=== PATIENT | male | born 1985 | race Caucasian/White ===

== ENCOUNTER 2018-10-06 19:13 | Emergency (ER) | payer SELFPAY ==
[2018-10-06 19:36] LABS: BASOPHILS % (AUTO) 0.4 %; EOSINOPHILS % (AUTO) 0.7 %; HGB - HEMOGLOBIN 16.8 g/dL (14.0-18.0); LYMPHOCYTES % (AUTO) 6.3 %; MEAN CORPUSCULAR HEMOGLOBIN 30.3 pg (27.0-31.0); MEAN CORPUSCULAR HGB CONC 33.3 g/dL (32.0-36.0); MEAN PLATELET VOLUME 9.1 fL (7.4-11.4); MONOCYTES % (AUTO) 7.6 %; NEUTROPHILS % (AUTO) 84.6 %; PLT - PLATELET COUNT 237 10^3/uL (130-450); RED BLOOD COUNT 5.55 10^6/uL (4.70-6.10); RED CELL DISTRIBUTION WIDTH 12.6 % (12.0-15.0); WHITE BLOOD COUNT 23.1 x10^3/uL (4.8-10.8)
[2018-10-06 19:38] LABS: ABNORMAL LYMPHS % (MANUAL) 0 %
[2018-10-06 19:49] LABS: ALBUMIN 4.5 g/dL (3.2-5.5); ALBUMIN/GLOBULIN RATIO 1.2 (1.0-2.2); BILIRUBIN,TOTAL 0.4 mg/dL (0.2-1.0); CALCIUM 9.6 mg/dL (8.5-10.3); CREATININE 0.9 mg/dL (0.6-1.2); TOTAL PROTEIN 8.2 g/dL (6.7-8.2)
[2018-10-06 19:59] LABS: BAND NEUTROPHILS % (MANUAL) 8 %; DIFFERENTIAL COMMENT MANUAL DIFFERENTIAL; LYMPHOCYTES % (MANUAL) 13 %; MONOCYTES # (MANUAL) 0.7 10^3/uL (0.0-1.0); PLATELET ESTIMATE, MANUAL NORMAL (130-450,000) (NORMAL); PLATELET MORPHOLOGY NORMAL APPEARANCE (NORMAL); RBC MORPHOLOGY (MULTIPLE) NORMAL APPEARANCE (NORMAL)
[2018-10-06] MEDS ORDERED: SODIUM CHLORIDE 0.9% 1,000 ML IV ONE (20:05)
--- NOTE | 2018-10-06 20:29 | ED Physician Documentation ---
PD HPI NVD - Stated complaint Stated Complaint: VOMITING - Chief complaint Chief Complaint: Abd Pain - History obtained from History obtained from: Patient - History of Present Illness Timing - onset: How many months ago Timing - details: Gradual onset, Still present Associated symptoms: Abdominal pain (Left abdomen), Dizzy, Near syncope / syncope, Other (Reports black coffee-ground gritty stools about 2-1/2 weeks ago that have resolved.). No: Fever, Hematemesis, Dysuria, Hematuria Contributing factors: No: Sick contact, Bad food, Travel, Recent antibiotics Recently seen: Not recently seen - Additonal information Additional information: This is a 33-year-old presents with complaints that he is been having "stomach problems" For the past several months. This consist of having abdominal pain across the whole abdomen but mostly on the left side kind of a stabbing type of pain. He is been having vomiting and diarrhea intermittently. He says his stools are now just water. He has not seen any bloody emesis but he thinks it was blood in his stool because he had black coffee ground gritty stools. His last emesis was just prior to arrival and he has already had diarrhea here tonight. He complains of chronic nausea. He is here tonight because he is feeling like he cannot go to work tomorrow. He has not traveled outside the [place] in the past 2 years. He denies use of antibiotics. He had a similar episode back in about 2013 that he was seen at [facility] for and the did a colonoscopy and biopsy of something and the symptoms resolved. He has been feeling dizzy but has not passed out. He gets a racing heart whenever he vomits. He works as a residential roofer helper. He lives alone. Review of Systems Constitutional: denies: Fever Nose: denies: Rhinorrhea / runny nose, Congestion Throat: denies: Sore throat Cardiac: reports: Palpitations (Only with vomiting) Respiratory: denies: Dyspnea GI: reports: Abdominal Pain, Nausea, Vomiting, Diarrhea, Bloody / black stool. denies: Hematemesis : denies: Dysuria, Frequency Musculoskeletal: denies: Back pain Neurologic: denies: Syncope Endocrine: reports: Other (He is not diabetic) PD PAST MEDICAL HISTORY - Past Medical History Past Medical History: No - Past Surgical History Past Surgical History: Yes Ortho: Other - Present Medications Home Medications: Ambulatory Orders Medication Instructions Recorded Confirmed No Known Home Medications 10/06/18 10/06/18 - Allergies Allergies/Adverse Reactions: Allergies Allergy/AdvReac Type Severity Reaction Status Date / Time Sulfa (Sulfonamide Allergy Hives Verified 10/06/18 19:20 Antibiotics) - Social History Does the pt smoke?: Yes Smoking Status: Current every day smoker Does the pt drink ETOH?: Yes ETOH Use: Wine, Beer, Liquor Does the pt have substance abuse?: No - Immunizations Immunizations are current?: Yes - POLST Patient has POLST: No PD ED PE NORMAL - Vitals Vital signs reviewed: Yes - General General: Alert and oriented X 3, No acute distress, Well developed/nourished - HEENT HEENT: Atraumatic, PERRL, Moist mucous membranes, Pharynx benign - Neck Neck: Supple, no meningeal sign, No adenopathy - Cardiac Cardiac: RRR, No murmur, Strong equal pulses - Respiratory Respiratory: No respiratory distress, Clear bilaterally - Abdomen Abdomen: Normal bowel sounds, Soft, No organomegaly, Other (Some guarding on the left abdominal.) - Derm Derm: Normal color, Warm and dry, No rash - Extremities Extremities: No edema - Neuro Neuro: Alert and oriented X 3, Normal speech Results - Vitals Vitals: Vital Signs - 24 hr 10/06/18 10/06/18 19:17 21:30 Temperature 36.2 C L Heart Rate 68 65 Respiratory 18 16 Rate Blood Pressure 129/91 H 133/74 H O2 Saturation 98 99 Oxygen O2 Source Room air - Labs Labs: Microbiology 10/06/18 21:10 Campylobacter Antigen Assay - Final Stool Laboratory Tests 10/06/18 10/06/18 10/06/18 19:30 19:30 20:28 WBC 23.1 H RBC 5.55 Hgb 16.8 Hct 50.5 MCV 91.0 MCH 30.3 MCHC 33.3 RDW 12.6 Plt Count 237 MPV 9.1 Neut # (Auto) Not Reportable Lymph # (Auto) Not Reportable [place] # (Auto) Not Reportable Eos # (Auto) Not Reportable Baso # (Auto) Not Reportable Absolute Nucleated RBC Not Reportable Total Counted 100 Band Neuts % (Manual) 8 Abnorm Lymph % (Manual) 0 Nucleated RBC % Not Reportable Neutrophils # (Manual) 19.4 H Lymphocytes # (Manual) 3.0 Monocytes # (Manual) 0.7 Eosinophils # (Manual) 0.0 Basophils # (Manual) 0.0 Differential Comment MANUAL DIFFERENTIAL Platelet Estimate NORMAL (130-450,000) Platelet Morphology NORMAL APPEARANCE RBC Morph Micro Appear NORMAL APPEARANCE Sodium 141 Potassium 4.3 Chloride 105 Carbon Dioxide 25 Anion Gap 11.0 BUN 18 Creatinine 0.9 Estimated GFR (MDRD) 98 Glucose 107 H Calcium 9.6 Total Bilirubin 0.4 AST 18 ALT 25 Alkaline Phosphatase 70 Total Protein 8.2 Albumin 4.5 Globulin 3.7 Albumin/Globulin Ratio 1.2 Lipase 29 Urine Color YELLOW Urine Clarity CLEAR Urine pH 5.5 Ur Specific [place] 1.025 Urine Protein NEGATIVE Urine Glucose (UA) NEGATIVE Urine Ketones NEGATIVE Urine Occult Blood NEGATIVE Urine Nitrite NEGATIVE Urine Bilirubin NEGATIVE Urine Urobilinogen 0.2 (NORMAL) Ur Leukocyte Esterase NEGATIVE Ur Microscopic Review NOT INDICATED Urine Culture Comments NOT INDICATED Stl Occult Blood (IFOB) Stool Leukocytes, Qual 10/06/18 10/06/18 21:10 21:10 WBC RBC Hgb Hct MCV MCH MCHC RDW Plt Count MPV Neut # (Auto) Lymph # (Auto) [place] # (Auto) Eos # (Auto) Baso # (Auto) Absolute Nucleated RBC Total Counted Band Neuts % (Manual) Abnorm Lymph % (Manual) Nucleated RBC % Neutrophils # (Manual) Lymphocytes # (Manual) Monocytes # (Manual) Eosinophils # (Manual) Basophils # (Manual) Differential Comment Platelet Estimate Platelet Morphology RBC Morph Micro Appear Sodium Potassium Chloride Carbon Dioxide Anion Gap BUN Creatinine Estimated GFR (MDRD) Glucose Calcium Total Bilirubin AST ALT Alkaline Phosphatase Total Protein Albumin Globulin Albumin/Globulin Ratio Lipase Urine Color Urine Clarity Urine pH Ur Specific [place] Urine Protein Urine Glucose (UA) Urine Ketones Urine Occult Blood Urine Nitrite Urine Bilirubin Urine Urobilinogen Ur Leukocyte Esterase Ur Microscopic Review Urine Culture Comments Stl Occult Blood (IFOB) POSITIVE A Stool Leukocytes, Qual NEGATIVE - Rads (name of study) abd/pelvis CT Radiology: See rad report (Neg for acute changes) PD MEDICAL DECISION MAKING - ED course Complexity details: reviewed results, re-evaluated patient, d/w patient ED course: Patient's white blood cell count was 23,000. Urinalysis and CMP and lipase were normal. He was given a liter fluids and he was able to supply a stool specimen which has been sent to the lab for culture, ova and parasites and Giardia screen. There was blood in the stool but no leukocytes. I did obtain a CT scan because of the elevated white count and left lower quadrant pain but no evidence of acute inflammatory process was noted. Patient was given a note for work tomorrow, which is what prompted his visit to begin with. He is referred to primary care for follow-up and most likely needs referral for an repeat colonoscopy and GI evaluation. Departure - Departure Disposition: 01 Home, Self Care Clinical Impression: Abdominal pain Qualifiers: Abdominal location: left lower quadrant Qualified Code(s): R10.32 - Left lower quadrant pain Diarrhea Qualifiers: Diarrhea type: unspecified type Qualified Code(s): R19.7 - Diarrhea, unspecified Condition: Good Instructions: ED Diet Vomiting Diarrhea Follow-Up: [facility] [Provider Group] Comments: You should call tomorrow to arrange follow-up with the primary care provider. Cultures and other stool studies are still pending at this time and they need to be followed up on. You probably need a repeat colonoscopy done as well. Continue to keep hydrated with plenty of water. Return to the emergency department if you develop a fever, have increasing pain, see leslee blood in the stool or other problems arise. Forms: Activity restrictions
[2018-10-06 20:33] LABS: BILIRUBIN,URINE NEGATIVE (NEGATIVE); GLUCOSE, URINE (UA) NEGATIVE (NEGATIVE); KETONES,URINE (UA) NEGATIVE (NEGATIVE); LEUKOCYTE ESTERASE, URINE NEGATIVE (NEGATIVE); NITRITE,URINE NEGATIVE (NEGATIVE); OCCULT BLOOD,URINE NEGATIVE (NEGATIVE); PH,URINE 5.5 PH (5.0-7.5); PROTEIN,URINE NEGATIVE (NEGATIVE); UROBILINOGEN,URINE 0.2 (NORMAL) E.U./dL (NORMAL)
[2018-10-06 20:35] LABS: CLARITY,URINE CLEAR (CLEAR)
[2018-10-06] MEDS ORDERED: IOVERSOL 320 100 ML VIAL IVP ONE ×2 (21:17→22:03)
--- NOTE | 2018-10-06 22:26 | CT Report ---
Reason: LLQ pain; V and D Procedure Date: 10/06/2018 Accession Number: [id number] / [id number] Procedure: CT - Abdomen/Pelvis W CPT Code: FULL RESULT: EXAM: CT ABDOMEN AND PELVIS EXAM DATE: 10/06/2018 10:01 PM. CLINICAL HISTORY: Left lower quadrant pain, vomiting and diarrhea. Intermittent abdominal pain for 2 months. COMPARISONS: None. TECHNIQUE: Routine helical CT imaging was performed through the abdomen and pelvis. IV contrast: OPTI 320 100ML. Enteric contrast: No. Reconstructions: Coronal and sagittal. In accordance with CT protocol optimization, one or more of the following dose reduction techniques were utilized for this exam: automated exposure control, adjustment of mA and/or KV based on patient size, or use of iterative reconstructive technique. FINDINGS: ABDOMEN: Liver: No significant abnormality. Stomach/Distal Esophagus: No significant abnormality. Gallbladder: No significant abnormality. Bile Ducts: No significant abnormality. Pancreas: No significant abnormality. Spleen: No significant abnormality. Kidneys: No suspicious solid appearing lesion. No hydronephrosis. Adrenals: No significant abnormality. Bowel: No obstruction. Average fecal residual. Appendix: Normal. Lymph Nodes: No pathologically enlarged nodes. Vasculature: Normal caliber aorta. Fluid: No significant free fluid. Abdominal Wall: No significant abnormality. Other: No significant abnormality. PELVIS: Prostate and Seminal Vesicles: No significant abnormality. Bladder: No significant abnormality. Lymph Nodes: No pathologically enlarged nodes. Fluid: No significant free fluid. Other: None. BONES: No suspicious bony lesions. LOWER CHEST: No significant consolidation or effusion. IMPRESSION: No acute abdominal or pelvic abnormality. RADIA
[2018-10-06 23:06] VITALS: BP 135/73
== END 2018-10-06 23:22 | disposition home or self-care (01) ==
LOC: ED 19:13
DX: R10.32 Left lower quadrant pain (principal); R19.7 Diarrhea, unspecified; K92.1 Melena; D72.829 Elevated white blood cell count, unspecified; F17.200 Nicotine dependence, unspecified, uncomplicated
CPT/HCPCS: 36415; 74177; 80053; 81003; 82274; 83630; 83690; 85025; 87045; 87046; 96360; 99284; Q9967; 81001; 87015; 87086; 87177; 87209; 87272; 87329

== ENCOUNTER 2019-06-04 02:34 | Emergency (ER) | payer MEDICAID ==
[2019-06-04] MEDS ORDERED: SODIUM CHLORIDE 0.9% 1,000 ML IV ONE (02:40)
[2019-06-04] MEDS ORDERED: ceFAZolin 2 GM in SODIUM CHLORIDE 0.9% 100ML 100 ML IV STA (02:40)
[2019-06-04] MEDS ORDERED: TETANUS/DIPHTHERIA/PERTUSSIS 0.5 ML SYRINGE IM ONE (02:41)
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
[2019-06-04 02:56] LABS: BASOPHILS # (AUTO) 0.1 10^3/uL (0.0-0.1); BASOPHILS % (AUTO) 0.8 %; EOSINOPHILS # (AUTO) 0.3 10^3/uL (0.0-0.7); EOSINOPHILS % (AUTO) 2.3 %; HGB - HEMOGLOBIN 14.3 g/dL (14.0-18.0); LYMPHOCYTES # (AUTO) 4.2 10^3/uL (1.5-3.5); LYMPHOCYTES % (AUTO) 30.8 %; MEAN CORPUSCULAR HEMOGLOBIN 31.6 pg (27.0-31.0); MEAN CORPUSCULAR HGB CONC 33.5 g/dL (32.0-36.0); MEAN CORPUSCULAR VOLUME 94.3 fL (80.0-94.0); MEAN PLATELET VOLUME 9.3 fL (7.4-11.4); MONOCYTES # (AUTO) 1.1 10^3/uL (0.0-1.0); MONOCYTES % (AUTO) 8.3 %; NEUTROPHILS # (AUTO) 7.6 10^3/uL (1.5-6.6); NEUTROPHILS % (AUTO) 56.3 %; PLT - PLATELET COUNT 267 10^3/uL (130-450); RED BLOOD COUNT 4.53 10^6/uL (4.70-6.10); RED CELL DISTRIBUTION WIDTH 12.5 % (12.0-15.0); WHITE BLOOD COUNT 13.5 x10^3/uL (4.8-10.8)
[2019-06-04 03:02] LABS: PT - PROTHROMBIN TIME 10.9 secs (9.9-12.6)
[2019-06-04 03:09] LABS: ALBUMIN 4.1 g/dL (3.2-5.5); ALBUMIN/GLOBULIN RATIO 1.3 (1.0-2.2); BILIRUBIN,TOTAL 0.5 mg/dL (0.2-1.0); CALCIUM 8.3 mg/dL (8.5-10.3); CREATININE 1.3 mg/dL (0.6-1.2); PARTIAL THROMBOPLASTIN TIME 25.9 secs (24.9-33.3); TOTAL PROTEIN 7.2 g/dL (6.7-8.2)
[2019-06-04] MEDS ORDERED: IOVERSOL 320 100 ML VIAL IVP ONE ×2 (03:10→04:23)
[2019-06-04 03:51] VITALS: BP 111/63
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
[2019-06-04 04:11] LABS: MUDS CUTOFF CONCENTRATIONS CUTOFF CONC BELOW:
[2019-06-04 04:12] LABS: BILIRUBIN,URINE NEGATIVE (NEGATIVE); GLUCOSE, URINE (UA) NEGATIVE (NEGATIVE); KETONES,URINE (UA) NEGATIVE (NEGATIVE); LEUKOCYTE ESTERASE, URINE NEGATIVE (NEGATIVE); NITRITE,URINE NEGATIVE (NEGATIVE); OCCULT BLOOD,URINE NEGATIVE (NEGATIVE); PROTEIN,URINE 30 mg/dL (NEGATIVE); UROBILINOGEN,URINE 0.2 (NORMAL) E.U./dL (NORMAL)
[2019-06-04 04:13] LABS: CLARITY,URINE CLEAR (CLEAR)
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
[2019-06-04 04:21] LABS: BACTERIA,URINE Rare /HPF (None Seen); CASTS, URINE 3-5 Hyaline Casts /LPF; RBC,URINE None Seen /HPF (0-5); SQUAMOUS EPITHELIAL CELL,UR NONE SEEN (<= Few)
[2019-06-04 04:23] LABS: AMPHETAMINE SCREEN,URINE NEGATIVE (NEGATIVE); BENZODIAZEPINES SCREEN, URINE NEGATIVE (NEGATIVE); COCAINE SCREEN URINE NEGATIVE (NEGATIVE); METHADONE SCREEN, URINE NEGATIVE (NEGATIVE); METHAMPHETAMINES SCREEN, URINE NEGATIVE (NEGATIVE); OPIATE SCREEN, URINE NEGATIVE (NEGATIVE); OXYCODONE SCREEN, URINE NEGATIVE (NEGATIVE); PROPOXYPHENE SCREEN, URINE NEGATIVE (NEGATIVE); TRICYCLIC ANTIDEPRESSANT,URINE NEGATIVE (NEGATIVE)
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
== END 2019-06-04 04:05 | disposition short-term general hospital (02) ==
LOC: ED 02:34
DX: T79.4XXA Traumatic shock, initial encounter (principal); W32.0XXA Accidental handgun discharge, initial encounter; R00.0 Tachycardia, unspecified; I95.9 Hypotension, unspecified; R91.8 Other nonspecific abnormal finding of lung field; F17.200 Nicotine dependence, unspecified, uncomplicated; S02.2XXA Fracture of nasal bones, initial encounter for closed fracture; S06.9X0A Unspecified intracranial injury without loss of consciousness, initial encounter; S02.40CA Maxillary fracture, right side, initial encounter for closed fracture; W18.39XA Other fall on same level, initial encounter; W22.03XA Walked into furniture, initial encounter; Y93.89 Activity, other specified; Y92.009 Unspecified place in unspecified non-institutional (private) residence as the place of occurrence of the external cause
CPT/HCPCS: 36415; 70450; 70486; 71045; 72125; 73206; 80053; 80306; 80320; 81001; 82550; 83690; 85025; 85610; 85730; 90471; 90715; 96361; 96365; 99291; Q9967; 81003; 86850; 86900; 86901; 86920; 87086